=== PATIENT | female | born 1955 | race American Indian/Alaskan Native ===

== ENCOUNTER 2019-12-30 07:57 | Observation (INO) | payer OTHER ==
[2019-12-30] MEDS ORDERED: Albuterol/Ipratropium 3.0-0.5 MG/3 ML Neb Soln NEB ONE ×2 (08:11→08:38)
[2019-12-30] MEDS ORDERED: predniSONE 20 MG Tab PO ONE (08:38)
--- NOTE | 2019-12-30 09:14 | CR ---
Chest: 2 views of the chest were obtained. Comparison: No prior chest x-ray. Heart size and mediastinum are normal. Lungs are clear. Bony structures are almost space narrowing scattered within the spine with mild endplate osteophytes. Impression: 1. Nothing acute is seen on two-view chest x-ray. Diagnostic code #1 This report was dictated in [place] Standard Time
[2019-12-30 09:28] LABS: BLOOD UREA NITROGEN,BUN 14 mg/dL (7.0-18.0); CARBON DIOXIDE,CO2 25.4 mmol/L (21.0-32.0); CHLORIDE,CL 102 mmol/L (98-107); GLUCOSE RANDOM 123 mg/dL (74-106); POTASSIUM,K 3.7 mmol/L (3.5-5.1); SODIUM,NA 139 mmol/L (136-145)
[2019-12-30] MEDS ORDERED: Benzonatate 100 MG Cap PO ONE (09:41)
--- NOTE | 2019-12-30 09:41 | EDM.PDOC ---
ED HPI GENERAL MEDICAL PROBLEM - General Chief Complaint: Respiratory Problem Stated Complaint: DIFFICULTY BREATHING, Time Seen by Provider: 12/30/19 08:23 - History of Present Illness INITIAL COMMENTS - FREE TEXT/NARRATIVE: 64-year-old smoker, denies medical problems (but has not seen a doctor) to ER for 3 weeks of progressive shortness of breath and cough. Patient is having pleuritic chest pain at the time. Also reports syncopal episodes with a coughing fits. Very limited exercise tolerance to the point where she cannot do her ADLs. denies Leg swelling denies hemoptysis. denies Fever denies other associated symptoms. has not Tried any medications at home. Symptoms are worse with exertion Quality: Reports: Ache Improves with: Reports: None Worsens with: Reports: Movement rib and chest when coughing Pain Score (Numeric/FACES): 5 - Related Data Allergies Allergy/AdvReac Type Severity Reaction Status Date / Time codeine Allergy Hives Verified 12/30/19 08:12 Home Meds: Home Meds . [No Known Home Meds] 12/30/19 [History] Past Medical History Cardiovascular History: Reports: Heart Murmur Respiratory History: Reports: Bronchitis, Recurrent, COPD, SOB - Infectious Disease History Infectious Disease History: Reports: Chicken Pox - Past Surgical History Female Surgical History: Reports: Hysterectomy Social & Family History - Family History Family Medical History: Noncontributory - Tobacco Use Smoking Status *Q: Current Every Day Smoker Years of Tobacco use: 50 Packs/Tins Daily: 1.5 - Alcohol Use Days Per Week of Alcohol Use: 7 Number of Drinks Per Day: 10 Total Drinks Per Week: 70 - Recreational Drug Use Recreational Drug Use: Yes Drug Use in Last 12 Months: Yes Recreational Drug Type: Reports: Marijuana/Hashish Recreational Drug Use Frequency: Monthly ED ROS GENERAL - Review of Systems Review Of Systems: See Below Constitutional: Reports: No Symptoms HEENT: Reports: No Symptoms Respiratory: Reports: Shortness of Breath, Cough Cardiovascular: Reports: Dyspnea on Exertion Endocrine: Reports: No Symptoms GI/Abdominal: Reports: No Symptoms : Reports: No Symptoms Musculoskeletal: Reports: No Symptoms Skin: Reports: No Symptoms Neurological: Reports: No Symptoms Psychiatric: Reports: No Symptoms Hematologic/Lymphatic: Reports: No Symptoms Immunologic: Reports: No Symptoms ED EXAM, GENERAL - Physical Exam Exam: See Below Exam Limited By: No Limitations General Appearance: Alert, No Apparent Distress Ears: Normal External Exam Throat/Mouth: Normal Inspection Head: Atraumatic, Normocephalic Neck: Supple Respiratory/Chest: No Respiratory Distress, Decreased Breath Sounds Cardiovascular: Normal Peripheral Pulses, Regular Rate, Rhythm GI/Abdominal: Soft, Non-Tender (Female) Exam: Deferred Rectal (Female) Exam: Deferred Back Exam: Normal Inspection, Full Range of Motion Extremities: No Pedal Edema Neurological: Alert, Oriented, Normal Cognition Psychiatric: Normal Affect Skin Exam: Warm EKG INTERPRETATION Rhythm: NSR QRS: Normal ST-T: Normal QT: Normal Course - Vital Signs Last Recorded V/S: Last Vital Signs Temp 97.6 F 12/30/19 08:12 Pulse 92 12/30/19 10:03 Resp 18 12/30/19 10:03 BP 154/99 H 12/30/19 08:12 Pulse Ox 98 12/30/19 10:03 - Orders/Labs/Meds Orders: Active Orders 24 hr Category Date Time Status EKG Documentation Completion [RC] STAT Care 12/30/19 08:37 Active RT Aerosol Therapy [RC] ASDIRECTED Care 12/30/19 08:11 Active RT Aerosol Therapy [RC] ASDIRECTED Care 12/30/19 08:38 Active Labs: Laboratory Tests 12/30/19 12/30/19 12/30/19 Range/Units 08:55 08:55 08:55 WBC 6.92 (4.0-11.0) K/uL RBC 4.21 L (4.30-5.90) M/uL Hgb 13.5 (12.0-16.0) g/dL Hct 41.0 (36.0-46.0) % MCV 97.4 (80.0-98.0) fL MCH 32.1 H (27.0-32.0) pg MCHC 32.9 (31.0-37.0) g/dL RDW Std Deviation 52.2 (28.0-62.0) fl RDW Coeff of Dao 15 (11.0-15.0) % Plt Count 157 (150-400) K/uL MPV 10.40 (7.40-12.00) fL Neut % (Auto) 41.5 L (48.0-80.0) % Lymph % (Auto) 44.9 H (16.0-40.0) % [place] % (Auto) 10.1 (0.0-15.0) % Eos % (Auto) 2.5 (0.0-7.0) % Baso % (Auto) 1.0 (0.0-1.5) % Neut # (Auto) 2.9 (1.4-5.7) K/uL Lymph # (Auto) 3.1 H (0.6-2.4) K/uL [place] # (Auto) 0.7 (0.0-0.8) K/uL Eos # (Auto) 0.2 (0.0-0.7) K/uL Baso # (Auto) 0.1 (0.0-0.1) K/uL Nucleated RBC % 0.0 /100WBC Nucleated RBCs # 0 K/uL Sodium 139 (136-145) mmol/L Potassium 3.7 (3.5-5.1) mmol/L Chloride 102 (98-107) mmol/L Carbon Dioxide 25.4 (21.0-32.0) mmol/L BUN 14 (7.0-18.0) mg/dL Creatinine 0.8 (0.6-1.0) mg/dL Est Cr Clr Drug Dosing 64.77 mL/min Estimated GFR (MDRD) > 60.0 ml/min Glucose 123 H (74-106) mg/dL Calcium 8.6 (8.5-10.1) mg/dL Total Bilirubin 0.5 (0.2-1.0) mg/dL AST 80 H (15-37) IU/L ALT 75 H (14-63) IU/L Alkaline Phosphatase 119 H (46-116) U/L Troponin I < 0.050 (0.000-0.056) ng/mL B-Natriuretic Peptide 42 (<100) PG/ML Total Protein 7.7 (6.4-8.2) g/dL Albumin 3.0 L (3.4-5.0) g/dL Globulin 4.7 H (2.6-4.0) g/dL Albumin/Globulin Ratio 0.6 L (0.9-1.6) Meds: Medications Discontinued Medications Generic Name Dose Route Start Last Admin Trade Name Freq PRN Reason Stop Dose Admin Albuterol/Ipratropium 3 ml 12/30/19 08:11 12/30/19 08:20 Duoneb 3.0-0.5 Mg/3 Ml NEB 12/30/19 08:12 3 ml ONETIME ONE Administration Albuterol/Ipratropium 3 ml 12/30/19 08:38 12/30/19 08:58 Duoneb 3.0-0.5 Mg/3 Ml NEB 12/30/19 08:39 3 ml ONETIME ONE Administration Benzonatate 200 mg 12/30/19 09:41 12/30/19 09:57 Tessalon Perles PO 12/30/19 09:42 200 mg ONETIME ONE Administration Benzonatate Confirm 12/30/19 09:59 12/30/19 10:02 Tessalon Perles Administered 12/30/19 10:00 Not Given Dose 100 mg .ROUTE .STK-MED ONE Prednisone 40 mg 12/30/19 08:38 12/30/19 09:08 Prednisone PO 12/30/19 08:39 40 mg ONETIME ONE Administration - Re-Assessments/Exams Free Text/Narrative Re-Assessment/Exam: 12/30/19 10:48 Patient presented with cough shortness of breath and syncope. I believe these to be secondary to COPD exacerbation. Her x-ray did not show any pneumonia. Flu Negative. Will admit for chest pain and sob. Discussed with hospitalist team. Departure - Departure Time of Disposition: 10:51 Disposition: Admitted As Inpatient 67 Clinical Impression: Syncope - Discharge Information Referrals: PCP,None [Primary Care Provider] - Forms: ED Department Discharge Sepsis Event Note - Evaluation Sepsis Screening Result: No Definite Risk - Focused Exam Vital Signs: Vital Signs Temp Pulse Resp BP Pulse Ox 12/30/19 10:03 92 18 98 12/30/19 09:08 101 H 20 96 12/30/19 08:12 97.6 F 103 H 20 154/99 H 97 Date Exam was Performed: 12/30/19 Time Exam was Performed: 10:48 - My Orders Last 24 Hours: My Active Orders 12/30/19 08:11 RT Aerosol Therapy [RC] ASDIRECTED 12/30/19 08:37 EKG Documentation Completion [RC] STAT 12/30/19 08:38 RT Aerosol Therapy [RC] ASDIRECTED - Assessment/Plan Last 24 Hours: My Active Orders 12/30/19 08:11 RT Aerosol Therapy [RC] ASDIRECTED 12/30/19 08:37 EKG Documentation Completion [RC] STAT 12/30/19 08:38 RT Aerosol Therapy [RC] ASDIRECTED
[2019-12-30] MEDS ORDERED: Benzonatate 100 MG Cap ONE (09:59)
--- NOTE | 2019-12-30 11:43 | PCM.HP.2 ---
H&P History of Present Illness - General Date of Service: 12/30/19 Admit Problem/Dx: Admission Diagnosis/Problem Admission Diagnosis/Problem Dyspnea - History of Present Illness Initial Comments - Free Text/Narative: 64 y/o female with history of COPD presenting to the ER with worsening shortness of breath over the past couple of weeks. States she smokes about 1 ppd. Not taking any medications. Has not seen a doctor in many years. Denies any other medical conditions. States she has been having a non productive cough. No fevers, abdominal pain, dysuria, diarrhea, blood in stool. No lower extremity swelling. rib and chest when coughing Pain Score (Numeric/FACES): 5 - Related Data Allergies/Adverse Reactions: Allergies Allergy/AdvReac Type Severity Reaction Status Date / Time codeine Allergy Hives Verified 12/30/19 13:38 Home Medications: Home Meds . [No Known Home Meds] 12/30/19 [History] Past Medical History Cardiovascular History: Reports: Heart Murmur Respiratory History: Reports: Bronchitis, Recurrent, COPD, SOB - Infectious Disease History Infectious Disease History: Reports: Chicken Pox - Past Surgical History Female Surgical History: Reports: Hysterectomy Social & Family History - Family History Family Medical History: Noncontributory - Tobacco Use Smoking Status *Q: Current Every Day Smoker Years of Tobacco use: 50 Packs/Tins Daily: 1.5 - Alcohol Use Days Per Week of Alcohol Use: 7 Number of Drinks Per Day: 10 Total Drinks Per Week: 70 - Recreational Drug Use Recreational Drug Use: Yes Drug Use in Last 12 Months: Yes Recreational Drug Type: Reports: Marijuana/Hashish Recreational Drug Use Frequency: Monthly H&P Review of Systems - Review of Systems: Review Of Systems: Comprehensive ROS is negative, except as noted in HPI. Exam - Exam Exam: See Below - Vital Signs Vital Signs: Last Vital Signs Temp 36.4 C 12/30/19 08:12 Pulse 92 12/30/19 10:03 Resp 18 12/30/19 10:03 BP 154/99 H 12/30/19 08:12 Pulse Ox 98 12/30/19 10:03 Weight: 68.039 kg - Exam General: Alert, Oriented, Cooperative HEENT: Other (dry oral mucosa) Lungs: Clear to Auscultation, Rhonchi, Wheezing Cardiovascular: Regular Rate, Regular Rhythm GI/Abdominal Exam: Normal Bowel Sounds, Soft, Non-Tender, No Distention Extremities: Normal Inspection, No Pedal Edema Skin: Warm, Dry - Patient Data Lab Results Last 24 hrs: Laboratory Results - last 24 hr 12/30/19 12/30/19 12/30/19 Range/Units 08:55 08:55 08:55 WBC 6.92 (4.0-11.0) K/uL RBC 4.21 L (4.30-5.90) M/uL Hgb 13.5 (12.0-16.0) g/dL Hct 41.0 (36.0-46.0) % MCV 97.4 (80.0-98.0) fL MCH 32.1 H (27.0-32.0) pg MCHC 32.9 (31.0-37.0) g/dL RDW Std Deviation 52.2 (28.0-62.0) fl RDW Coeff of Dao 15 (11.0-15.0) % Plt Count 157 (150-400) K/uL MPV 10.40 (7.40-12.00) fL Neut % (Auto) 41.5 L (48.0-80.0) % Lymph % (Auto) 44.9 H (16.0-40.0) % [place] % (Auto) 10.1 (0.0-15.0) % Eos % (Auto) 2.5 (0.0-7.0) % Baso % (Auto) 1.0 (0.0-1.5) % Neut # (Auto) 2.9 (1.4-5.7) K/uL Lymph # (Auto) 3.1 H (0.6-2.4) K/uL [place] # (Auto) 0.7 (0.0-0.8) K/uL Eos # (Auto) 0.2 (0.0-0.7) K/uL Baso # (Auto) 0.1 (0.0-0.1) K/uL Nucleated RBC % 0.0 /100WBC Nucleated RBCs # 0 K/uL Sodium 139 (136-145) mmol/L Potassium 3.7 (3.5-5.1) mmol/L Chloride 102 (98-107) mmol/L Carbon Dioxide 25.4 (21.0-32.0) mmol/L BUN 14 (7.0-18.0) mg/dL Creatinine 0.8 (0.6-1.0) mg/dL Est Cr Clr Drug Dosing 64.77 mL/min Estimated GFR (MDRD) > 60.0 ml/min Glucose 123 H (74-106) mg/dL Calcium 8.6 (8.5-10.1) mg/dL Total Bilirubin 0.5 (0.2-1.0) mg/dL AST 80 H (15-37) IU/L ALT 75 H (14-63) IU/L Alkaline Phosphatase 119 H (46-116) U/L Troponin I < 0.050 (0.000-0.056) ng/mL B-Natriuretic Peptide 42 (<100) PG/ML Total Protein 7.7 (6.4-8.2) g/dL Albumin 3.0 L (3.4-5.0) g/dL Globulin 4.7 H (2.6-4.0) g/dL Albumin/Globulin Ratio 0.6 L (0.9-1.6) Result Diagrams: 12/30/19 08:55 12/30/19 08:55 Myles Results Last 24 hrs: Microbiology 12/30/19 09:40 Influenza Type A Antigen Screen - Final Nasopharyngeal Swab NEGATIVE INFLUENZA A VIRUS AG REFERENCE RANGE: NEGATIVE Influenza Type B Antigen Screen - Final NEGATIVE INFLUENZA B VIRUS AG REFERENCE RANGE: NEGATIVE Sepsis Event Note - Evaluation Sepsis Screening Result: No Definite Risk - Focused Exam Vital Signs: Vital Signs Temp Pulse Resp BP Pulse Ox 12/30/19 10:03 92 18 98 12/30/19 09:08 101 H 20 96 12/30/19 08:12 36.4 C 103 H 20 154/99 H 97 Date Exam was Performed: 12/30/19 Time Exam was Performed: 13:52 Problem List Initiated/Reviewed/Updated: Yes Orders Last 24hrs: Active Orders 24 hr Category Date Time Status Admission Status [Patient Status] [ADT] Stat ADT 12/30/19 10:52 Active EKG Documentation Completion [RC] STAT Care 12/30/19 08:37 Active RT Aerosol Therapy [RC] ASDIRECTED Care 12/30/19 08:11 Active RT Aerosol Therapy [RC] ASDIRECTED Care 12/30/19 08:38 Active Assessment/Plan Comment:: A: 1. Acute COPD exacerbation 2. Tobacco abuse P: 1. Will treat with methylprednisolone 40 mg IV BID, Duonebs and titrate O2 as tolerated. Nicotine patch PRN. Will need follow-up with PCP for outpatient PFTs and further COPD management. Dispo: 1-2 days.
[2019-12-30] MEDS ORDERED: Nicotine 14 MG/24 Hr Patch TRDERM PRN (12:07)
[2019-12-30] MEDS ORDERED: Sodium Chloride 0.9% 1,000 ML IV ONE (12:09)
[2019-12-30] MEDS ORDERED: Albuterol/Ipratropium 3.0-0.5 MG/3 ML Neb Soln NEB SCH (12:15)
[2019-12-30] MEDS: Albuterol/Ipratropium 3.0-0.5 MG/3 ML Neb Soln NEB SCH ×3 (13:29→21:33)
[2019-12-30 14:07] LABS: HEMOGLOBIN A1C 6.1 % (4.5-6.2)
[2019-12-30] MEDS: methylPREDNISolone Sodium Succinate 40 MG/1 ML SDV IVPUSH SCH ×2 (14:45→23:35)
[2019-12-30] MEDS: Benzonatate 100 MG Cap PO SCH ×2 (14:45→21:45)
[2019-12-30] MEDS ORDERED: LORazepam 2 MG/ML SDV IVPUSH PRN (21:05)
[2019-12-30] MEDS ORDERED: Codeine/guaiFENesin 100-10 MG/5 ML Syrup 5 ML Cup PO PRN (22:49)
[2019-12-30] MEDS ORDERED: amLODIPine 5 MG Tab PO SCH (23:07)
[2019-12-30] MEDS ORDERED: Ibuprofen 400 MG Tab PO PRN (23:17)
[2019-12-30] MEDS: Lactated Ringers 1,000 ML IV SCH (23:32)
[2019-12-31] MEDS: Albuterol/Ipratropium 3.0-0.5 MG/3 ML Neb Soln NEB SCH ×2 (01:57→06:08)
[2019-12-31] MEDS: Benzonatate 100 MG Cap PO SCH ×2 (05:37→15:10)
[2019-12-31 06:52] LABS: CARBON DIOXIDE,CO2 28.9 mmol/L (21.0-32.0); POTASSIUM,K 3.8 mmol/L (3.5-5.1)
[2019-12-31] MEDS: Lactated Ringers 1,000 ML IV SCH (07:17)
[2019-12-31] MEDS ORDERED: Albuterol/Ipratropium 3.0-0.5 MG/3 ML Neb Soln NEB PRN (08:06)
[2019-12-31] MEDS ORDERED: amLODIPine 5 MG Tab PO SCH (09:00)
--- NOTE | 2019-12-31 09:14 | PCM.DCSUM1 ---
Discharge Summary - Hospital Course Free Text/Narrative:: 64 y/o female with history of COPD who presented to the ER complaining of worsening shortness of breath. Admitted for acute COPD exacerbation. Started on azithromycin, steroids, duoneb treatments. She was found to be hypertensinve. Stated on amlodipine. She did fairly well overnight. Her symptoms had improved significantly and she was discharged home on Azithromycin, prednisone, Robitussin AC, albuterol and amlodipine. Advised to quit smoking and follow-up with her PCP. - Discharge Data Discharge Date: 12/31/19 Discharge Disposition: Home, Self-Care 01 Condition: Stable - Referral to Home Health Primary Care Physician: PCP None - Patient Instructions Diet: Regular Diet as Tolerated, Drink 8-10+ Glasses/Day, No Alcoholic Beverages Notify Provider of: Fever, Increased Pain, Swelling and Redness, Nausea and/or Vomiting - Discharge Plan Prescriptions/Med Rec: Albuterol [Ventolin HFA] 8 gm IH Q4H PRN #1 inhaler PRN Reason: Wheezing amLODIPine Besylate [Amlodipine Besylate] 10 mg PO DAILY 30 Days #30 tablet Azithromycin 250 mg PO DAILY 5 Days #5 tablet Codeine/guaiFENesin [Robitussin AC] 5 ml PO Q4H PRN #1 bottle PRN Reason: Cough predniSONE 20 mg PO WITHBREAKFAST 5 Days #5 tab Home Medications: Home Meds Albuterol [Ventolin HFA] 8 gm IH Q4H PRN #1 inhaler 12/31/19 [Rx] Azithromycin 250 mg PO DAILY 5 Days #5 tablet 12/31/19 [Rx] Codeine/guaiFENesin [Robitussin AC] 5 ml PO Q4H PRN #1 bottle 12/31/19 [Rx] amLODIPine Besylate [Amlodipine Besylate] 10 mg PO DAILY 30 Days #30 tablet [Rx] predniSONE 20 mg PO WITHBREAKFAST 5 Days #5 tab 12/31/19 [Rx] Patient Handouts: Albuterol inhalation aerosol, Azithromycin tablets, Amlodipine tablets, Codeine; Guaifenesin oral solution or syrup, Prednisone tablets, Syncope, [id number] Referrals: [facility] [Outside] Duncan Cole MD [Resident] - 01/13/20 3:15 pm - Discharge Summary/Plan Comment DC Time >30 min.: No - Patient Data Vitals - Most Recent: Last Vital Signs Temp 37.2 C 12/31/19 07:50 Pulse 110 H 12/31/19 07:50 Resp 19 12/31/19 07:50 BP 179/89 H 12/31/19 07:50 Pulse Ox 96 12/31/19 07:50 Weight - Most Recent: 68.039 kg I&O - Last 24 hours: Intake & Output 12/30/19 12/31/19 12/31/19 22:59 06:59 14:59 Intake Total 980 1733 Output Total 1500 Balance 980 233 Lab Results - Last 24 hrs: Laboratory Results - last 24 hr 12/30/19 12/30/19 12/30/19 Range/Units 08:55 08:55 13:49 WBC (4.0-11.0) K/uL RBC (4.30-5.90) M/uL Hgb (12.0-16.0) g/dL Hct (36.0-46.0) % MCV (80.0-98.0) fL MCH (27.0-32.0) pg MCHC (31.0-37.0) g/dL RDW Std Deviation (28.0-62.0) fl RDW Coeff of Dao (11.0-15.0) % Plt Count (150-400) K/uL MPV (7.40-12.00) fL Neut % (Auto) (48.0-80.0) % Lymph % (Auto) (16.0-40.0) % [place] % (Auto) (0.0-15.0) % Eos % (Auto) (0.0-7.0) % Baso % (Auto) (0.0-1.5) % Neut # (Auto) (1.4-5.7) K/uL Lymph # (Auto) (0.6-2.4) K/uL [place] # (Auto) (0.0-0.8) K/uL Eos # (Auto) (0.0-0.7) K/uL Baso # (Auto) (0.0-0.1) K/uL Nucleated RBC % /100WBC Nucleated RBCs # K/uL Sodium 139 (136-145) mmol/L Potassium 3.7 (3.5-5.1) mmol/L Chloride 102 (98-107) mmol/L Carbon Dioxide 25.4 (21.0-32.0) mmol/L BUN 14 (7.0-18.0) mg/dL Creatinine 0.8 (0.6-1.0) mg/dL Est Cr Clr Drug Dosing 64.77 mL/min Estimated GFR (MDRD) > 60.0 ml/min Glucose 123 H (74-106) mg/dL Hemoglobin A1c 6.1 (4.5-6.2) % Calcium 8.6 (8.5-10.1) mg/dL Total Bilirubin 0.5 (0.2-1.0) mg/dL AST 80 H (15-37) IU/L ALT 75 H (14-63) IU/L Alkaline Phosphatase 119 H (46-116) U/L Troponin I < 0.050 (0.000-0.056) ng/mL B-Natriuretic Peptide 42 (<100) PG/ML Total Protein 7.7 (6.4-8.2) g/dL Albumin 3.0 L (3.4-5.0) g/dL Globulin 4.7 H (2.6-4.0) g/dL Albumin/Globulin Ratio 0.6 L (0.9-1.6) 12/31/19 12/31/19 Range/Units 06:16 06:16 WBC 11.81 H (4.0-11.0) K/uL RBC 4.08 L (4.30-5.90) M/uL Hgb 12.9 (12.0-16.0) g/dL Hct 40.3 (36.0-46.0) % MCV 98.8 H (80.0-98.0) fL MCH 31.6 (27.0-32.0) pg MCHC 32.0 (31.0-37.0) g/dL RDW Std Deviation 54.6 (28.0-62.0) fl RDW Coeff of Dao 15 (11.0-15.0) % Plt Count 153 (150-400) K/uL MPV 10.40 (7.40-12.00) fL Neut % (Auto) 89.8 H (48.0-80.0) % Lymph % (Auto) 8.1 L (16.0-40.0) % [place] % (Auto) 2.0 (0.0-15.0) % Eos % (Auto) 0.0 (0.0-7.0) % Baso % (Auto) 0.1 (0.0-1.5) % Neut # (Auto) 10.6 H (1.4-5.7) K/uL Lymph # (Auto) 1.0 (0.6-2.4) K/uL [place] # (Auto) 0.2 (0.0-0.8) K/uL Eos # (Auto) 0.0 (0.0-0.7) K/uL Baso # (Auto) 0.0 (0.0-0.1) K/uL Nucleated RBC % 0.0 /100WBC Nucleated RBCs # 0 K/uL Sodium 140 (136-145) mmol/L Potassium 3.8 (3.5-5.1) mmol/L Chloride 104 (98-107) mmol/L Carbon Dioxide 28.9 (21.0-32.0) mmol/L BUN 16 (7.0-18.0) mg/dL Creatinine 1.0 (0.6-1.0) mg/dL Est Cr Clr Drug Dosing 51.81 mL/min Estimated GFR (MDRD) 56.0 ml/min Glucose 212 H (74-106) mg/dL Hemoglobin A1c (4.5-6.2) % Calcium 8.5 (8.5-10.1) mg/dL Total Bilirubin 0.4 (0.2-1.0) mg/dL AST 49 H (15-37) IU/L ALT 61 (14-63) IU/L Alkaline Phosphatase 112 (46-116) U/L Troponin I (0.000-0.056) ng/mL B-Natriuretic Peptide (<100) PG/ML Total Protein 7.3 (6.4-8.2) g/dL Albumin 2.7 L (3.4-5.0) g/dL Globulin 4.6 H (2.6-4.0) g/dL Albumin/Globulin Ratio 0.6 L (0.9-1.6) JORDAN Results - Last 24 hrs: Microbiology 12/30/19 09:40 Influenza Type A Antigen Screen - Final Nasopharyngeal Swab NEGATIVE INFLUENZA A VIRUS AG REFERENCE RANGE: NEGATIVE Influenza Type B Antigen Screen - Final NEGATIVE INFLUENZA B VIRUS AG REFERENCE RANGE: NEGATIVE Med Orders - Current: Current Medications Albuterol/Ipratropium (Duoneb 3.0-0.5 Mg/3 Ml) 3 ml NEB Q6HRRT PRN PRN Reason: Dyspnea Amlodipine Besylate (Norvasc) 10 mg PO DAILY [facility] Benzonatate (Tessalon Perles) 200 mg PO TID [facility] Last Admin: 12/31/19 05:37 Dose: 200 mg Guaifenesin/Codeine Phosphate (Robitussin Ac) 5 ml PO Q4H PRN PRN Reason: Cough Lactated Ringer's (Ringers, Lactated) 1,000 mls @ 125 mls/hr IV ASDIRECTED [facility] Last Admin: 12/31/19 07:17 Dose: 125 mls/hr Ibuprofen (Motrin) 400 mg PO Q4H PRN PRN Reason: Pain Last Admin: 12/30/19 23:26 Dose: 400 mg Influenza Virus Vaccine (Fluzone Quad Syringe) 60 mcg IM .ONCE ONE Stop: 12/31/19 22:01 Lorazepam (Ativan) 0 mg IVPUSH Q4H PRN; Protocol PRN Reason: Withdrawal Symptoms Methylprednisolone Sodium Succinate (Solu-Medrol) 40 mg IVPUSH Q12H [facility] Last Admin: 12/30/19 23:35 Dose: 40 mg Nicotine (Habitrol) 14 mg TRDERM DAILY PRN PRN Reason: Other Discontinued Medications Albuterol/Ipratropium (Duoneb 3.0-0.5 Mg/3 Ml) 3 ml NEB ONETIME ONE Stop: 12/30/19 08:12 Last Admin: 12/30/19 08:20 Dose: 3 ml Albuterol/Ipratropium (Duoneb 3.0-0.5 Mg/3 Ml) 3 ml NEB ONETIME ONE Stop: 12/30/19 08:39 Last Admin: 12/30/19 08:58 Dose: 3 ml Albuterol/Ipratropium (Duoneb 3.0-0.5 Mg/3 Ml) 3 ml NEB Q4H [facility] Last Admin: 12/31/19 08:56 Dose: Not Given Albuterol/Ipratropium (Duoneb 3.0-0.5 Mg/3 Ml) 3 ml NEB Q4HRRT [facility] Last Admin: 12/31/19 06:08 Dose: 3 ml Amlodipine Besylate (Norvasc) 5 mg PO DAILY [facility] Last Admin: 12/30/19 23:28 Dose: 5 mg Benzonatate (Tessalon Perles) 200 mg PO ONETIME ONE Stop: 12/30/19 09:42 Last Admin: 12/30/19 09:57 Dose: 200 mg Benzonatate (Tessalon Perles) Confirm Administered Dose 100 mg .ROUTE .STK-MED ONE Stop: 12/30/19 10:00 Last Admin: 12/30/19 10:02 Dose: Not Given Sodium Chloride (Normal Saline) 1,000 mls @ 200 mls/hr IV STAT ONE Stop: 12/30/19 17:08 Last Admin: 12/30/19 14:45 Dose: 200 mls/hr Influenza Virus Vaccine (Pharmacy To Dose - Influenza Vaccine) 1 each IM ONETIME ONE Stop: 12/30/19 13:31 Prednisone (Prednisone) 40 mg PO ONETIME ONE Stop: 12/30/19 08:39 Last Admin: 12/30/19 09:08 Dose: 40 mg
[2019-12-31] MEDS ORDERED: Iopamidol 755 MG/ML 200 ML Multipack Bottle IVPUSH ONE (12:27)
--- NOTE | 2019-12-31 13:11 | CT ---
CT chest Technique: Multiple axial sections through the chest were obtained. Intravenous contrast was utilized. Study has been performed as a pulmonary angiogram protocol. Findings: Pulmonary arteries are well opacified. No filling defects are seen to indicate pulmonary embolism. Atherosclerotic calcification is noted within the thoracic aorta without aneurysm. Mediastinum shows several lymph nodes believed to be within normal limits. No pericardial thickening is seen. Lungs are clear. No acute parenchymal change is seen. No pleural effusions are noted. Bone window settings were reviewed which shows no acute osseous finding. Slight degenerative change is scattered within the spine. Impression: 1. No findings of pulmonary embolism. 2. Nothing acute is appreciated on CT study of the chest. Diagnostic code #2 This report was dictated in [place] Standard Time
[2019-12-31] MEDS: methylPREDNISolone Sodium Succinate 40 MG/1 ML SDV IVPUSH SCH (13:12)
[2019-12-31] MEDS ORDERED: FLU Vacc QS2019-20(6MOS+)/PF 60 MCG/0.5 ML SYRINGE IM ONE (22:00)
== END 2019-12-31 17:15 | disposition home or self-care (01) ==
LOC: MW.ED 07:57 → MW.MS 11:33
PROVIDERS: ADMIT Student in an Organized Health Care Education/Training Program; ATTEND Student in an Organized Health Care Education/Training Program
DX: J44.1 Chronic obstructive pulmonary disease with (acute) exacerbation (principal); F17.210 Nicotine dependence, cigarettes, uncomplicated; Z88.5 Allergy status to narcotic agent
CPT/HCPCS: 36415; 71046; 71275; 80053; 80061; 81001; 83036; 83880; 84484; 85025; 87804; 93005; 94640; 99285; A9270; J2920; J7030; J7120; Q9967; 96361; 96374; 96376; G0378; J7620-GY